=== PATIENT | female | born 1960 | race Caucasian/White ===

== ENCOUNTER → 2020-01-02 | Day surgery (SDC) | payer BC, OTHER ==
[~2020-01-02] MED LIST: BIOTIN2500 MCG PO; BLACK ELDERBER1 EACH PO; CINNAMON PLUS1 EACH PO; COQ-10100 MG PO; CRANBERRY500 M1 PO; CURCUMIN1 GM PO; FENOFIBRATE145 MG PO; FENTANYL CITRATE/PF 100MCG/2 ML INJ ONE; FISH OIL500 MG PO; GARLIC1000 MG PO; HYDROCHLOROTHIA25 MG PO; IRBESARTAN150 MG PO; MIDAZOLAM HCL 2 MG/2 ML VIAL ONE; MORINGA PO; MOTRIN200 MG PO; PAROXETINE HCL20 MG PO; PROPOFOL IV EMULSION 10 MG/ML 20 ML VIAL ONE; QUERCETIN DIHYDR1 GM PO; SELENIUM200 MC2 PO; TRIPLE LECITHIN PO; TYLENOL WITH C1 EACH PO; VITAMIN C1000 MG PO; VITAMIN D3125 MCG PO; VITAMIN K240 MCG PEG
--- NOTE | 2020-01-02 07:20 | NUR ---
SPIRITUAL CARE - Pre-Surgery Assessment: Pt in bed. Pt's at bedside. Pt reported supportive attention from family and friends. Intervention: Communication Professor provided pastoral presence, hospitality, sympathetic listening, and prayer. Acquainted pt with availability of facilities operations technician while hospitalized. Outcome: Pt expressed appreciation for visit. No need for follow up indicated at this time. [facility] Department O: [phone]
[2020-01-02 09:00] VITALS: BP 134/83
== END | disposition home or self-care (01) ==
LOC: OR 06:16
PROVIDERS: ATTEND Internal Medicine Gastroenterology
DX: Z12.11 Encounter for screening for malignant neoplasm of colon (principal); K63.5 Polyp of colon; K62.1 Rectal polyp; K64.8 Other hemorrhoids; Z71.3 Dietary counseling and surveillance; I10 Essential (primary) hypertension; E66.01 Morbid (severe) obesity due to excess calories; Z88.8 Allergy status to other drugs, medicaments and biological substances; Z01.810 Encounter for preprocedural cardiovascular examination; Z01.812 Encounter for preprocedural laboratory examination; Z11.59 Encounter for screening for other viral diseases; Z68.42 Body mass index [BMI] 45.0-49.9, adult
CPT/HCPCS: 45385; 87635; 93005; J2250; J2704; J3010; 45378

== ENCOUNTER 2022-10-01 23:59 | Inpatient (IN) | payer BC ==
[~2022-10-01] VITALS: Ht 165.1 cm; Wt 144.4 kg
[~2022-10-01 23:59] MED LIST changes: -FENTANYL CITRATE/PF 100MCG/2 ML INJ ONE; -MIDAZOLAM HCL 2 MG/2 ML VIAL ONE; -PROPOFOL IV EMULSION 10 MG/ML 20 ML VIAL ONE
[2022-10-02] VITALS (8 sets, daily range): BP systolic 100–130; BP diastolic 55–78
[2022-10-02] MEDS ORDERED: KETOROLAC TROMETHAMINE 30 MG/ML VIAL IV STA (00:57)
[2022-10-02] MEDS ORDERED: ONDANSETRON HCL INJ 2MG/ML 2ML 2 MG/ML VIAL IV STA (00:57)
[2022-10-02] MEDS ORDERED: SODIUM CHLORIDE 0.9% 1000ML 1,000 ML IV SCH (01:00)
[2022-10-02] MEDS ORDERED: ONDANSETRON HCL INJ 2MG/ML 2ML 2 MG/ML VIAL ONE (01:14)
[2022-10-02] MEDS ORDERED: SODIUM CHLORIDE 0.9% 1000ML 1,000 ML ONE (01:14)
[2022-10-02] MEDS ORDERED: KETOROLAC TROMETHAMINE 30 MG/ML VIAL ONE (01:14)
[2022-10-02] MEDS ORDERED: IOPAMIDOL 370 MG/ML 100 ML INFUS..BTL INJ ONE (01:25)
[2022-10-02] MEDS ORDERED: KETOROLAC TROMETHAMINE 30 MG/ML VIAL IV PRN (02:30)
[2022-10-02] MEDS ORDERED: ONDANSETRON HCL INJ 2MG/ML 2ML 2 MG/ML VIAL IV PRN (02:30)
[2022-10-02] MEDS ORDERED: CEFTRIAXONE 1 GM VIAL IM ONE (02:30)
[2022-10-02] MEDS ORDERED: SODIUM CHLORIDE 0.9% 100 ML ONE (02:32)
[2022-10-02] MEDS ORDERED: CEFTRIAXONE 1 GM VIAL ONE (02:32)
[2022-10-02] MEDS: SODIUM CHLORIDE 0.9% 1000ML 1,000 ML IV SCH ×4 (04:10→23:48)
[2022-10-02] MEDS ORDERED: ELIQUIS5 MG PO (04:19)
[2022-10-02] MEDS ORDERED: Magnesium PO (04:19)
[2022-10-02] MEDS ORDERED: zinc PO (04:19)
[2022-10-02] MEDS ORDERED: METOPROLOL TART50 MG PO (04:19)
[2022-10-02] MEDS: HYDROMORPHONE 1MG/1ML INJ IV PRN (05:48)
[2022-10-02] MEDS: NICOTINE 21 MG/EA PATCH TOP SCH (10:39)
[2022-10-02] MEDS: ENOXAPARIN SODIUM INJ 100 MG/ML SYR SC SCH (17:12)
[2022-10-02] MEDS: CEFTRIAXONE 2 GM in SODIUM CHLORIDE 0.9% 100 ML IV SCH (20:12)
[2022-10-03 04:40] VITALS: BP 121/63
[2022-10-03 08:00] VITALS: BP 123/65
[2022-10-03 08:32] VITALS: BP 120/65
[2022-10-03] MEDS: HYDROMORPHONE 1MG/1ML INJ IV PRN ×3 (08:53→22:14)
[2022-10-03] MEDS: SODIUM CHLORIDE 0.9% 1000ML 1,000 ML IV SCH ×2 (08:53→21:06)
[2022-10-03] MEDS: NICOTINE 21 MG/EA PATCH TOP SCH (08:53)
[2022-10-03 12:35] VITALS: BP 127/62
[2022-10-03 16:09] VITALS: BP 127/47
[2022-10-03] MEDS: ENOXAPARIN SODIUM INJ 100 MG/ML SYR SC SCH (17:07)
[2022-10-03 20:00] VITALS: BP 150/70
[2022-10-03] MEDS: CEFTRIAXONE 2 GM in SODIUM CHLORIDE 0.9% 100 ML IV SCH (21:05)
[2022-10-04] VITALS: BP 137/88
[2022-10-04] MEDS: SODIUM CHLORIDE 0.9% 1000ML 1,000 ML IV SCH ×3 (02:30→17:54)
[2022-10-04 04:00] VITALS: BP 126/69
[2022-10-04 07:42] LABS: BASOPHILS % 0.6 % (0.0-1.0); EOSINOPHILS # (AUTO) 0.3 (0.0-0.4); EOSINOPHILS % 4.5 % (0.0-6.0); HEMATOCRIT 42.1 % (34.2-44.1); HEMOGLOBIN 13.3 g/dL (12.0-16.0); LYMPHOCYTES # (AUTO) 1.3 (1.0-3.2); LYMPHOCYTES % 18.6 % (18.0-39.1); MEAN CORPUSCULAR HEMOGLOBIN 29.4 pg (28-32); MEAN CORPUSCULAR HGB CONC 31.6 g/dL (31-35); MEAN CORPUSCULAR VOLUME 92.9 fL (81-99); MONOCYTES # (AUTO) 0.4 (0.2-0.8); MONOCYTES % 6.4 % (4.4-11.3); NEUTROPHILS # (AUTO) 4.8 (2.1-6.9); NEUTROPHILS % 69.6 % (38.7-80.0); PLATELET COUNT 141 x10e3/uL (140-360); RED BLOOD COUNT 4.53 x10e6/uL (3.6-5.1)
[2022-10-04 08:00] VITALS: BP 152/79
[2022-10-04 08:32] VITALS: BP 152/79
[2022-10-04] MEDS: NICOTINE 21 MG/EA PATCH TOP SCH (10:00)
[2022-10-04] MEDS ORDERED: IOPAMIDOL 610MG/1ML 300 MG/ML VIAL IV ONE (10:28)
[2022-10-04] MEDS ORDERED: ONDANSETRON HCL 4 MG ORAL DISINTEGRATING TAB PO PRN (11:15)
[2022-10-04 15:54] VITALS: BP 126/77
[2022-10-04] MEDS: ENOXAPARIN SODIUM INJ 100 MG/ML SYR SC SCH (17:15)
== END 2022-10-04 19:05 | disposition home or self-care (01) | DRG 660 ==
LOC: FSED 10-02 00:06 → ERHOLD 10-02 02:38 → MED/SURG3 10-02 03:34
PROVIDERS: ADMIT Family Medicine; ATTEND Family Medicine
PROC: 0T768DZ Dilation of Right Ureter with Intraluminal Device, Via Natural or Artificial Opening Endoscopic (ICD-10-PCS; principal; 2022-10-04 10:45)
PROC: 0TC68ZZ Extirpation of Matter from Right Ureter, Via Natural or Artificial Opening Endoscopic (ICD-10-PCS; 2022-10-04 10:45)
DX: N13.2 Hydronephrosis with renal and ureteral calculous obstruction (principal); Z68.43 Body mass index [BMI] 50.0-59.9, adult; I10 Essential (primary) hypertension; E78.5 Hyperlipidemia, unspecified; I48.91 Unspecified atrial fibrillation; F41.9 Anxiety disorder, unspecified; K76.0 Fatty (change of) liver, not elsewhere classified; F17.200 Nicotine dependence, unspecified, uncomplicated; E66.01 Morbid (severe) obesity due to excess calories; D75.1 Secondary polycythemia; G47.39 Other sleep apnea; Z20.822 Contact with and (suspected) exposure to COVID-19; Z79.01 Long term (current) use of anticoagulants
CPT/HCPCS: 36415; 74177; 74420; 80048; 80076; 81003; 85025; 87086; 88300; 96374; 96376; 99284; C1758; C1874; J0696; J1170; J1650; J1885; J2405; J7030; J7050; Q9967